=== PATIENT | female | born 1940 | race Caucasian/White ===

== ENCOUNTER 2017-02-01 10:51 | Day surgery (SDC) | payer MEDICARE, OTHER ==
[~2017-02-01 10:51] MED LIST: MIDAZOLAM 2 MG/2 ML VIAL IVP ONE; ONDANSETRON 4 MG/2 ML VIAL IVP ONE; fentaNYL 100 MCG/2 ML VIAL IVP ONE
[2017-02-01] MEDS ORDERED: LACTATED RINGERS 1,000 ML IV ONE (11:17)
[2017-02-01] MEDS ORDERED: MIDAZOLAM 2 MG/2 ML VIAL IVP ONE (12:24)
[2017-02-01] MEDS ORDERED: fentaNYL 250 MCG/5 ML VIAL IVP ONE (12:24)
== END 2017-02-01 10:52 | disposition home or self-care (01) ==
PROC: 0DJD8ZZ Inspection of Lower Intestinal Tract, Via Natural or Artificial Opening Endoscopic (ICD-10-PCS; principal; 2017-02-01 12:00)
DX: Z12.11 Encounter for screening for malignant neoplasm of colon (principal); K57.30 Diverticulosis of large intestine without perforation or abscess without bleeding; Z86.010 Personal history of colon polyps; I10 Essential (primary) hypertension; E78.00 Pure hypercholesterolemia, unspecified; Z79.82 Long term (current) use of aspirin; Z85.828 Personal history of other malignant neoplasm of skin; Z83.3 Family history of diabetes mellitus; Z82.49 Family history of ischemic heart disease and other diseases of the circulatory system; Z80.3 Family history of malignant neoplasm of breast; Z87.891 Personal history of nicotine dependence
CPT/HCPCS: G0105; J3010; J7120

== ENCOUNTER 2017-06-14 10:10 | Outpatient (CLI) | payer MEDICARE, OTHER ==
--- NOTE | 2017-06-15 15:09 | Mammography Report ---
DIGITAL SCREENING MAMMOGRAM: 06/14/2017 CLINICAL INDICATION: A 76-year-old with family history of breast cancer for screening. COMPARISON: 05/2016, 04/2015, 04/2014, 04/2013, 02/2012, 01/2011, 01/2010 TECHNIQUE: Routine CC and MLO projections were obtained of the breasts. FINDINGS: Parenchymal tissue within the breasts is predominantly fatty replaced. There are no domina nt masses, suspicious microcalcifications, or secondary signs of malignancy. In comparison to the pre vious studies, there are no significant changes. IMPRESSION: NO MAMMOGRAPHIC EVIDENCE OF MALIGNANCY. NO SIGNIFICANT INTERVAL CHANGES. RECOMMENDATION: Screening mammography is recommended annually. BIRADS category 1 - negative. STANDARD QUALIFYING STATEMENTS 1. This examination was reviewed with the aid of Computed-Aided Detection (CAD). 2. A negative or benign imaging report should not delay biopsy if clinically suspicious findings are present. Consider surgical consultation if warranted. More than 5% of cancers are not identified by i maging. 3. Dense breasts may obscure an underlying neoplasm. JOB #: [id number] EXT JOB #:[id number]
== END 2017-06-14 10:11 | disposition home or self-care (01) ==
LOC: DI.N 10:10
PROVIDERS: ATTEND Physician Assistant Medical
DX: Z12.31 Encounter for screening mammogram for malignant neoplasm of breast (principal)
CPT/HCPCS: 77067

== ENCOUNTER 2018-08-19 12:17 | Outpatient (CLI) | payer MEDICARE, OTHER ==
--- NOTE | 2018-08-20 13:49 | Mammography Report ---
Reason: SCREENING MAMMO Procedure Date: 08/19/2018 Accession Number: [id number] / [id number] Procedure: MGN - Screening Mammo Dig Bilat CPT Code: FULL RESULT: EXAM: Screening Mammo Dig Bilat DATE: 08/19/2018 12:39 PM CLINICAL HISTORY: Routine screening TECHNIQUE: Bilateral CC and MLO views were obtained. COMPARISON: 06/14/2017, 06/01/2016, 05/13/2015 and 05/12/2014 FINDINGS: There are scattered fibroglandular densities. There is no significant interval change. No suspicious masses, clustered microcalcifications, or regions of architectural distortion are identified. IMPRESSION: Negative examination RECOMMENDATION: Routine annual screening unless otherwise clinically indicated. BIRADS CATEGORY 1: Negative STANDARD QUALIFYING STATEMENTS: 1. This examination was reviewed with the aid of Computer-Aided Detection (CAD). 2. A negative or benign imaging report should not delay biopsy if clinically suspicious findings are present. Consider surgical consultation if warrented. More than 5% of cancers are not identified by imaging. 3. Dense breasts may obscure an underlying neoplasm.
== END 2018-08-19 12:18 | disposition home or self-care (01) ==
LOC: DI.N 12:17
DX: Z12.31 Encounter for screening mammogram for malignant neoplasm of breast (principal)
CPT/HCPCS: 77067

== ENCOUNTER 2019-08-19 09:47 | Outpatient (CLI) | payer MEDICARE, OTHER ==
--- NOTE | 2019-08-19 12:35 | Mammography Report ---
Reason: SCREENING MAMMO Procedure Date: 08/19/2019 Accession Number: [id number] / [id number] Procedure: MGN - Screening Mammo Dig Bilat CPT Code: FULL RESULT: EXAM: Screening Mammo Dig Bilat DATE: 08/19/2019 10:07 AM CLINICAL HISTORY: Routine screening TECHNIQUE: (B) - Bilateral CC and MLO views were obtained. COMPARISON: 08/19/2018, 06/14/2017, 06/01/2016, 05/13/2015, 05/12/2014, 05/16/2013 and 03/02/2012 PARENCHYMAL PATTERN: (A) - The breasts demonstrate scattered fibroglandular densities bilaterally. FINDINGS: No significant interval change. There are no suspicious masses, calcifications, or areas of distortion. IMPRESSION: Negative examination. BI-RADS category 1. RECOMMENDATION: (ANNUAL) - Recommend routine annual screening mammography. BI-RADS CATEGORY: (1) - Negative. STANDARD QUALIFYING STATEMENTS: 1. This examination was not reviewed with the aid of Computer-Aided Detection (CAD). 2. A negative or benign imaging report should not preclude biopsy if clinically suspicious findings are present. 3. Dense breasts may obscure an underlying neoplasm. 4. This examination was reviewed without the aid of 3D breast imaging (tomosynthesis).
== END 2019-08-19 09:48 | disposition home or self-care (01) ==
LOC: DI.N 09:47
DX: Z12.31 Encounter for screening mammogram for malignant neoplasm of breast (principal)
CPT/HCPCS: 77067

== ENCOUNTER 2019-11-05 08:00 | Outpatient (CLI) | payer MEDICARE, OTHER ==
[2019-11-05 12:44] LABS: ALBUMIN 4.2 g/dL (3.2-5.5); ALBUMIN/GLOBULIN RATIO 1.3 (1.0-2.2); BILIRUBIN,TOTAL 0.7 mg/dL (0.2-1.0); CALCIUM 10.6 mg/dL (8.5-10.3); CREATININE 0.8 mg/dL (0.4-1.0); TOTAL PROTEIN 7.5 g/dL (6.7-8.2)
[2019-11-05 12:45] LABS: BASOPHILS # (AUTO) 0.1 10^3/uL (0.0-0.1); BASOPHILS % (AUTO) 0.6 %; EOSINOPHILS # (AUTO) 0.1 10^3/uL (0.0-0.7); EOSINOPHILS % (AUTO) 0.5 %; HGB - HEMOGLOBIN 14.9 g/dL (12.0-16.0); LYMPHOCYTES # (AUTO) 2.5 10^3/uL (1.5-3.5); LYMPHOCYTES % (AUTO) 26.2 %; MEAN CORPUSCULAR HEMOGLOBIN 27.9 pg (27.0-31.0); MEAN CORPUSCULAR HGB CONC 32.5 g/dL (32.0-36.0); MEAN CORPUSCULAR VOLUME 85.6 fL (81.0-99.0); MEAN PLATELET VOLUME 9.8 fL (7.9-10.8); MONOCYTES # (AUTO) 0.8 10^3/uL (0.0-1.0); MONOCYTES % (AUTO) 8.6 %; NEUTROPHILS # (AUTO) 6.2 10^3/uL (1.5-6.6); NEUTROPHILS % (AUTO) 63.6 %; PLT - PLATELET COUNT 418 10^3/uL (130-450); RED BLOOD COUNT 5.35 10^6/uL (4.20-5.40); RED CELL DISTRIBUTION WIDTH 15.1 % (12.0-15.0); WHITE BLOOD COUNT 9.7 x10^3/uL (4.8-10.8)
[2019-11-05 13:53] LABS: HB2 TOTAL 14.9 g/dL; HEMOGLOBIN A1C 0.61 g/dL; HEMOGLOBIN A1C % 5.9 % (4.6-6.2)
== END 2019-11-05 23:59 | disposition home or self-care (01) ==
LOC: LAB.WCP 08:00
PROVIDERS: ATTEND Family Medicine
DX: E87.6 Hypokalemia (principal); R73.01 Impaired fasting glucose; I10 Essential (primary) hypertension
CPT/HCPCS: 36415; 80053; 83036; 85025

== ENCOUNTER 2021-07-06 08:00 | Outpatient (CLI) | payer MEDICARE, OTHER ==
[2021-07-06 12:08] LABS: BASOPHILS # (AUTO) 0.1 10^3/uL (0.0-0.1); BASOPHILS % (AUTO) 0.8 %; EOSINOPHILS # (AUTO) 0.2 10^3/uL (0.0-0.7); EOSINOPHILS % (AUTO) 1.7 %; HCT - HEMATOCRIT 47.2 % (37.0-47.0); LYMPHOCYTES # (AUTO) 3.3 10^3/uL (1.5-3.5); LYMPHOCYTES % (AUTO) 32.4 %; MEAN CORPUSCULAR HEMOGLOBIN 28.2 pg (27.0-31.0); MEAN CORPUSCULAR HGB CONC 31.8 g/dL (32.0-36.0); MEAN CORPUSCULAR VOLUME 88.7 fL (81.0-99.0); MEAN PLATELET VOLUME 9.9 fL (7.9-10.8); MONOCYTES # (AUTO) 0.9 10^3/uL (0.0-1.0); MONOCYTES % (AUTO) 8.8 %; NEUTROPHILS # (AUTO) 5.6 10^3/uL (1.5-6.6); NEUTROPHILS % (AUTO) 55.9 %; PLT - PLATELET COUNT 466 10^3/uL (130-450); RED BLOOD COUNT 5.32 10^6/uL (4.20-5.40); RED CELL DISTRIBUTION WIDTH 15.4 % (12.0-15.0); WHITE BLOOD COUNT 10.1 x10^3/uL (4.8-10.8)
[2021-07-06 12:35] LABS: ALBUMIN 4.2 g/dL (3.2-5.5); ALBUMIN/GLOBULIN RATIO 1.3 (1.0-2.2); ALKALINE PHOSPHATASE 37 IU/L (42-121); ALT ALANINE AMINOTRANSFERASE 18 IU/L (10-60); AST ASPARTATE AMINOTRANSFERASE 17 IU/L (10-42); BILIRUBIN,TOTAL 0.6 mg/dL (0.2-1.0); BUN - BLOOD UREA NITROGEN 28 mg/dL (6-20); CALCIUM 10.3 mg/dL (8.5-10.3); CARBON DIOXIDE - CO2 30 mmol/L (21-32); CHLORIDE 103 mmol/L (101-111); CHOL/HDL RATIO 3.2 (<4.4); CHOLESTEROL 189 mg/dL; CREATININE 0.9 mg/dL (0.4-1.0); GFR - MDRD 60 (>89); GLUCOSE 107 mg/dL (70-100); HDL CHOLESTEROL 60 mg/dL; LDL CHOLESTEROL,CALCULATED 101 mg/dL; LDL/HDL RATIO 1.7 (<4.4); POTASSIUM 3.9 mmol/L (3.5-5.0); SODIUM 145 mmol/L (135-145); TOTAL PROTEIN 7.5 g/dL (6.7-8.2); TRIGLYCERIDES 141 mg/dL; VLDL CHOLESTEROL 28 mg/dL
[2021-07-06 12:39] LABS: THYROID STIMULATING HORMONE 2.06 uIU/mL (0.34-5.60)
[2021-07-06 12:41] LABS: ESTIMATED AVERAGE GLUCOSE 120 mg/dL (70-100); HEMOGLOBIN A1c% 5.8 % (4.27-6.07)
== END 2021-07-06 23:59 | disposition home or self-care (01) ==
LOC: LAB.WCP 08:00
PROVIDERS: ATTEND Physician Assistant Medical
DX: E87.5 Hyperkalemia (principal); R80.9 Proteinuria, unspecified; R73.01 Impaired fasting glucose; E78.5 Hyperlipidemia, unspecified; I10 Essential (primary) hypertension
CPT/HCPCS: 36415; 80053; 80061; 83036; 83721; 84443; 85025

== ENCOUNTER 2021-07-11 14:38 | Outpatient (CLI) | payer MEDICARE, OTHER ==
--- NOTE | 2021-07-12 13:00 | Mammography Report ---
BILATERAL DIGITAL SCREENING MAMMOGRAM 3D/2D: 07/11/2021 CLINICAL: Family history of breast cancer. Routine screening. Comparison is made to exams dated: 08/19/2019 mammogram, 08/19/2018 mammogram, 06/14/2017 mammogram, 06/01/2016 mammogram, 05/13/2015 mammogram, and 05/12/2014 mammogram - [facility]. The re are scattered fibroglandular elements in both breasts. No significant masses, calcifications, or other findings are seen in either breast. There has been no significant interval change. IMPRESSION: NEGATIVE There is no mammographic evidence of malignancy. A 1 year screening mammogram is recommended. This exam was interpreted at Station ID: [id number]. NOTE: For mammograms, a report in lay terms will be sent to the patient. Approximately 15% of breast malignancies will not be visualized mammographically. In the management of a palpable breast mass, a negative mammogram must not discourage biopsy of a clinically suspicious lesion. Electronically Signed By: Papa Jarquin acr/penrad:07/11/2021 18:00:22 ACR BI-RADS Category 1: Negative 3341F PARENCHYMAL PATTERN: (A) - The breast(s) demonstrate(s) scattered fibroglandular densities. BI-RADS CATEGORY: (1) - 1 RECOMMENDATION: (ANNUAL) - Recommend routine annual screening mammography. [id number] 1 year screening LATERALITY: (B)
== END 2021-07-11 14:39 | disposition home or self-care (01) ==
LOC: DI.N 14:38
DX: Z12.31 Encounter for screening mammogram for malignant neoplasm of breast (principal); Z80.3 Family history of malignant neoplasm of breast

== ENCOUNTER 2022-07-05 07:38 | Outpatient (CLI) | payer MEDICARE, OTHER ==
[2022-07-05 12:47] LABS: BASOPHILS # (AUTO) 0.1 10^3/uL (0.0-0.1); BASOPHILS % (AUTO) 0.8 %; EOSINOPHILS # (AUTO) 0.2 10^3/uL (0.0-0.7); HCT - HEMATOCRIT 47.9 % (37.0-47.0); HGB - HEMOGLOBIN 15.6 g/dL (12.0-16.0); LYMPHOCYTES % (AUTO) 30.2 %; MEAN CORPUSCULAR HEMOGLOBIN 28.3 pg (27.0-31.0); MEAN CORPUSCULAR HGB CONC 32.6 g/dL (32.0-36.0); MEAN CORPUSCULAR VOLUME 86.9 fL (81.0-99.0); MEAN PLATELET VOLUME 9.5 fL (7.9-10.8); MONOCYTES # (AUTO) 0.9 10^3/uL (0.0-1.0); MONOCYTES % (AUTO) 9.1 %; NEUTROPHILS # (AUTO) 5.6 10^3/uL (1.5-6.6); NEUTROPHILS % (AUTO) 57.5 %; PLT - PLATELET COUNT 489 10^3/uL (130-450); RED BLOOD COUNT 5.51 10^6/uL (4.20-5.40); RED CELL DISTRIBUTION WIDTH 15.5 % (12.0-15.0); WHITE BLOOD COUNT 9.8 x10^3/uL (4.8-10.8)
[2022-07-05 13:21] LABS: ALBUMIN 4.4 g/dL (3.2-5.5); ALBUMIN/GLOBULIN RATIO 1.3 (1.0-2.2); ALKALINE PHOSPHATASE 40 IU/L (42-121); ALT ALANINE AMINOTRANSFERASE 18 IU/L (10-60); AST ASPARTATE AMINOTRANSFERASE 21 IU/L (10-42); BILIRUBIN,TOTAL 0.9 mg/dL (0.2-1.0); BUN - BLOOD UREA NITROGEN 23 mg/dL (6-20); CALCIUM 10.5 mg/dL (8.5-10.3); CARBON DIOXIDE - CO2 30 mmol/L (21-32); CHLORIDE 99 mmol/L (101-111); CHOL/HDL RATIO 2.9 (<4.4); CHOLESTEROL 228 mg/dL; CREATININE 0.8 mg/dL (0.4-1.0); GFR - MDRD 69 (>89); GLUCOSE 110 mg/dL (70-100); HDL CHOLESTEROL 78 mg/dL; LDL CHOLESTEROL,CALCULATED 100 mg/dL; LDL/HDL RATIO 1.3 (<4.4); SODIUM 140 mmol/L (135-145); TOTAL PROTEIN 7.7 g/dL (6.7-8.2); TRIGLYCERIDES 251 mg/dL; VLDL CHOLESTEROL 50 mg/dL
[2022-07-05 13:25] LABS: ESTIMATED AVERAGE GLUCOSE 123 mg/dL (70-100); HEMOGLOBIN A1c% 5.9 % (4.27-6.07)
== END 2022-07-05 07:39 | disposition home or self-care (01) ==
LOC: LAB.N 07:38
PROVIDERS: ATTEND Physician Assistant Medical
DX: I10 Essential (primary) hypertension (principal); E78.5 Hyperlipidemia, unspecified; R73.01 Impaired fasting glucose
CPT/HCPCS: 36415; 80053; 80061; 83036; 83721; 85025

== ENCOUNTER 2022-08-09 09:02 | Outpatient (CLI) | payer MEDICARE, OTHER ==
--- NOTE | 2022-08-10 09:49 | Mammography Report ---
BILATERAL DIGITAL SCREENING MAMMOGRAM 3D/2D: 08/09/2022 CLINICAL: Routine screening. Comparison is made to exams dated: 07/11/2021 mammogram, 08/19/2019 mammogram, 08/19/2018 mammogram, 06/14/2017 mammogram, 06/01/2016 mammogram, and 05/13/2015 mammogram - [facility]. There are scattered areas of fibroglandular density in both breasts (category b / 25%-50% glandular t issue). No significant masses, calcifications, or other findings are seen in either breast. There has been no significant interval change. IMPRESSION: NEGATIVE There is no mammographic evidence of malignancy. A 1 year screening mammogram is recommended. Based on the Tyrer Cuzick model (a risk assessment model) the patients lifetime risk is 0.8% and her 10 year risk is 0.0%. According to the ACR, ACS, and NCCN guidelines, an annual breast MRI exam miguel g with mammogram is recommended if the patients lifetime risk is 20% or greater. This exam was interpreted at Station ID: [id number]. NOTE: For mammograms, a report in lay terms will be sent to the patient. Approximately 15% of breast malignancies will not be visualized mammographically. In the management of a palpable breast mass, a negative mammogram must not discourage biopsy of a clinically suspicious lesion. Electronically Signed By: Mike rodriguez/felipa:08/10/2022 07:46:28 ACR BI-RADS Category 1: Negative 3341F PARENCHYMAL PATTERN: (A) - The breast(s) demonstrate(s) scattered fibroglandular densities. BI-RADS CATEGORY: (1) - 1 RECOMMENDATION: (ANNUAL) - Recommend routine annual screening mammography. [id number] 1 year screening LATERALITY: (B)
== END 2022-08-09 09:03 | disposition home or self-care (01) ==
LOC: DI.N 09:02
DX: Z12.31 Encounter for screening mammogram for malignant neoplasm of breast (principal)

== ENCOUNTER 2023-09-13 08:11 | Outpatient (CLI) | payer MEDICARE, OTHER ==
[2023-09-13 11:36] LABS: BASOPHILS # (AUTO) 0.1 10^3/uL (0.0-0.1); BASOPHILS % (AUTO) 0.5 %; EOSINOPHILS # (AUTO) 0.1 10^3/uL (0.0-0.7); HCT - HEMATOCRIT 44.9 % (37.0-47.0); HGB - HEMOGLOBIN 14.7 g/dL (12.0-16.0); LYMPHOCYTES # (AUTO) 2.5 10^3/uL (1.5-3.5); LYMPHOCYTES % (AUTO) 26.5 %; MEAN CORPUSCULAR HEMOGLOBIN 29.1 pg (27.0-31.0); MEAN CORPUSCULAR HGB CONC 32.7 g/dL (32.0-36.0); MEAN CORPUSCULAR VOLUME 88.7 fL (81.0-99.0); MEAN PLATELET VOLUME 9.7 fL (7.9-10.8); MONOCYTES # (AUTO) 1.2 10^3/uL (0.0-1.0); MONOCYTES % (AUTO) 12.2 %; NEUTROPHILS # (AUTO) 5.6 10^3/uL (1.5-6.6); NEUTROPHILS % (AUTO) 59.6 %; PLT - PLATELET COUNT 507 10^3/uL (130-450); RED BLOOD COUNT 5.06 10^6/uL (4.20-5.40); RED CELL DISTRIBUTION WIDTH 15.5 % (12.0-15.0); WHITE BLOOD COUNT 9.4 x10^3/uL (4.8-10.8)
[2023-09-13 12:11] LABS: ALBUMIN 4.3 g/dL (3.2-5.5); ALBUMIN/GLOBULIN RATIO 1.7 (1.0-2.2); ALKALINE PHOSPHATASE 31 IU/L (42-121); ALT ALANINE AMINOTRANSFERASE 16 IU/L (10-60); AST ASPARTATE AMINOTRANSFERASE 19 IU/L (10-42); BILIRUBIN,TOTAL 0.6 mg/dL (0.2-1.0); BUN - BLOOD UREA NITROGEN 37 mg/dL (6-20); CALCIUM 9.9 mg/dL (8.5-10.3); CARBON DIOXIDE - CO2 26 mmol/L (21-32); CHLORIDE 102 mmol/L (101-111); CHOL/HDL RATIO 2.9 (<4.4); CHOLESTEROL 178 mg/dL; CREATININE 0.9 mg/dL (0.6-1.3); GFR - MDRD 60 (>89); GLUCOSE 99 mg/dL (74-104); HDL CHOLESTEROL 62 mg/dL; LDL CHOLESTEROL,CALCULATED 87 mg/dL; LDL/HDL RATIO 1.4 (<4.4); POTASSIUM 3.5 mmol/L (3.5-4.5); SODIUM 138 mmol/L (135-145); TOTAL PROTEIN 6.8 g/dL (6.4-8.9); TRIGLYCERIDES 144 mg/dL (48-352); VLDL CHOLESTEROL 29 mg/dL
[2023-09-13 12:29] LABS: ESTIMATED AVERAGE GLUCOSE 111 mg/dL (70-100); HEMOGLOBIN A1c% 5.5 % (4.27-6.07)
== END 2023-09-13 08:12 | disposition home or self-care (01) ==
LOC: LAB.N 08:11
PROVIDERS: ATTEND Physician Assistant Medical
DX: I10 Essential (primary) hypertension (principal); E78.5 Hyperlipidemia, unspecified; Z79.899 Other long term (current) drug therapy; R73.01 Impaired fasting glucose
CPT/HCPCS: 36415; 80053; 80061; 83036; 83721; 85025

== ENCOUNTER 2024-04-15 09:10 | Outpatient (CLI) | payer MEDICARE, OTHER ==
--- NOTE | 2024-04-15 15:13 | XRAY Report ---
PROCEDURE: Knee 3V RT INDICATIONS: KNEE PAIN, RIGHT TECHNIQUE: 3 views of the knee(s) were acquired. COMPARISON: None. FINDINGS: Bones: No fractures or dislocations. No suspicious bony lesions. Moderate tricompartmental arthri tic change most severe medially. Particular osteophytes are present. No erosions. Mild lateral patell ar subluxation. Soft tissues: No knee joint effusion. No suspicious soft tissue calcifications or masses. IMPRESSION: Moderate arthritic change most severe medially. Reviewed by: Radha Killian MD on 04/15/2024 3:11 PM PDT Approved by: Radha Killian MD on 04/15/2024 3:11 PM PDT Station ID: [id number]
== END 2024-04-15 09:11 | disposition home or self-care (01) ==
LOC: DI.N 09:10
PROVIDERS: ATTEND Physician Assistant Medical
DX: M17.11 Unilateral primary osteoarthritis, right knee (principal)

== ENCOUNTER 2024-05-20 10:23 | Outpatient (CLI) | payer MEDICARE, OTHER ==
--- NOTE | 2024-05-22 09:14 | Mammography Report ---
BILATERAL DIGITAL SCREENING MAMMOGRAM 3D/2D: 05/20/2024 CLINICAL: Routine screening. Family history of breast cancer. Comparison is made to exams dated: 08/09/2022 mammogram, 07/11/2021 mammogram, and 08/19/2019 mammogr am - [facility]. There are scattered areas of fibroglandular density in both breasts (category b / 25%-50% glandular t issue). No significant masses, calcifications, or other findings are seen in either breast. There has been no significant interval change. IMPRESSION: NEGATIVE There is no mammographic evidence of malignancy. A 1 year screening mammogram is recommended. This exam was interpreted at Station ID: [id number]. NOTE: For mammograms, a report in lay terms will be sent to the patient. Approximately 15% of breast malignancies will not be visualized mammographically. In the management of a palpable breast mass, a negative mammogram must not discourage biopsy of a clinically suspicious lesion. Electronically Signed By: German king/felipa:05/20/2024 11:37:30 letter sent: No_Letter ACR BI-RADS Category 1: Negative 3341F PARENCHYMAL PATTERN: (A) - The breast(s) demonstrate(s) scattered fibroglandular densities. BI-RADS CATEGORY: (1) - 1 RECOMMENDATION: (ANNUAL) - Recommend routine annual screening mammography. [id number] 1 year screening LATERALITY: (B)
== END 2024-05-20 10:24 | disposition home or self-care (01) ==
LOC: DI.N 10:23
DX: Z12.31 Encounter for screening mammogram for malignant neoplasm of breast (principal); Z80.3 Family history of malignant neoplasm of breast; R92.323 Mammographic fibroglandular density, bilateral breasts

== ENCOUNTER 2024-12-06 12:55 | Observation (INO) ==
[2024-12-06 13:31] LABS: BASOPHILS # (AUTO) 0.1 10^3/uL (0.0-0.1); BASOPHILS % (AUTO) 0.6 %; EOSINOPHILS # (AUTO) 0.1 10^3/uL (0.0-0.7); EOSINOPHILS % (AUTO) 0.5 %; HCT - HEMATOCRIT 45.2 % (37.0-47.0); HGB - HEMOGLOBIN 14.6 g/dL (12.0-16.0); LYMPHOCYTES # (AUTO) 2.8 10^3/uL (1.5-3.5); LYMPHOCYTES % (AUTO) 22.5 %; MEAN CORPUSCULAR HEMOGLOBIN 29.1 pg (27.0-31.0); MEAN CORPUSCULAR HGB CONC 32.3 g/dL (32.0-36.0); MEAN CORPUSCULAR VOLUME 90.2 fL (81.0-99.0); MEAN PLATELET VOLUME 9.4 fL (7.9-10.8); MONOCYTES # (AUTO) 1.3 10^3/uL (0.0-1.0); NEUTROPHILS # (AUTO) 8.3 10^3/uL (1.5-6.6); NEUTROPHILS % (AUTO) 65.8 %; PLT - PLATELET COUNT 654 10^3/uL (130-450); RED BLOOD COUNT 5.01 10^6/uL (4.20-5.40); RED CELL DISTRIBUTION WIDTH 15.3 % (12.0-15.0); WHITE BLOOD COUNT 12.6 x10^3/uL (4.8-10.8)
[2024-12-06 13:44] LABS: ALBUMIN 4.2 g/dL (3.2-5.5); ALBUMIN/GLOBULIN RATIO 1.3 (1.0-2.2); BILIRUBIN,TOTAL 0.4 mg/dL (0.2-1.0); CALCIUM 11.1 mg/dL (8.5-10.3); CREATININE 1.1 mg/dL (0.6-1.3); POTASSIUM 3.8 mmol/L (3.5-4.5); TOTAL PROTEIN 7.4 g/dL (6.4-8.9)
[2024-12-06 13:50] LABS: TROPONIN I HIGH SENSITIVITY 6.4 ng/L (2.3-14.8)
[2024-12-06] MEDS: LIDOCAINE 2%-EPI 1:100000 20 ML MDV SUBQ STA (14:40)
--- NOTE | 2024-12-06 14:50 | CT Report ---
PROCEDURE: CT Head WO INDICATIONS: fall head injury TECHNIQUE: Noncontrast 4.5 mm thick angled axial sections acquired from the foramen magnum to the vertex. For r adiation dose reduction, the following was used: automated exposure control, adjustment of mA and/or kV according to patient size. COMPARISON: None. FINDINGS: Image quality: Excellent. CSF spaces: Basal cisterns are patent. No extra-axial fluid collections. Ventricles are normal in size and shape. Brain: No midline shift. No intracranial masses or hemorrhage. Downey-white matter interface is norm al. Skull and face: Calvarium and visualized facial bones are intact, without suspicious lesions. Subcu taneous hematoma over the right parieto-occipital region without underlying fracture. Sinuses: Visualized sinuses and mastoids are clear. IMPRESSION: No intracranial hemorrhage. Subgaleal hematoma over the right parietal occipital region. Reviewed by: Edin Ayers MD on 12/06/2024 1:49 PM [place] Approved by: Edin Ayers MD on 12/06/2024 1:49 PM [facility] Station ID: [id number]
--- NOTE | 2024-12-06 14:52 | CT Report ---
PROCEDURE: CT Cervical Spine WO INDICATIONS: neck pain after fall TECHNIQUE: Noncontrast 3 mm thick sections acquired from the skull base to the T4 level. Sagittal and coronal r eformats were then constructed. For radiation dose reduction, the following was used: automated exp osure control, adjustment of mA and/or kV according to patient size. COMPARISON: None. FINDINGS: Image quality: Excellent. Bones: No fractures or dislocations. Visualized superior ribs are intact. Soft tissues: Prevertebral soft tissues are normal in thickness. No paravertebral hematomas. No ap ical pneumothoraces. Large bilateral thyroid nodules. IMPRESSION: No acute, displaced fracture or traumatic subluxation. Large bilateral thyroid nodules. Consider nonemergent ultrasound if not previously accomplished. Reviewed by: Edin Ayers MD on 12/06/2024 1:50 PM [facility] Approved by: Edin Ayers MD on 12/06/2024 1:50 PM [facility] Station ID: [id number]
--- NOTE | 2024-12-06 15:49 | ED Physician Documentation ---
History of Present Illness Stated complaint Stated Complaint: GLF/SYNCOPE Chief complaint Chief Complaint: Neuro History obtained from History obtained from: Patient History of Present Illness Timing: Prior to arrival Additonal information Additional information: Patient is an 84-year-old female presenting to the emergency department with past medical history of hypertension presents to the ER after syncopal episode. Patient was brought in by EMS after a syncopal episode at [employer]. Unsure how long she was out for patient denies any presyncopal symptoms prior to this. Patient is not on any sort of blood thinners. She was started on IV per EMS but had no fluids started as she was not hypotensive on their arrival. No nausea vomiting dizziness lightheadedness chest pain or shortness of breath associated with her symptoms. No significant past medical history of coronary artery disease. Meds/Allgy Home Medications Ambulatory Orders Medication Instructions Recorded Confirmed amlodipine 10 mg-atorvastatin 10 1 mg PO DAILY 01/31/17 01/31/17 mg tablet indapamide 2.5 mg tablet 2.5 mg PO DAILY 01/31/17 01/31/17 potassium chloride 10 mEq 10 meq PO DAILY 01/31/17 01/31/17 capsule,extended release aspirin 81 mg tablet,delayed 81 mg PO DAILY 02/01/17 02/01/17 release Allergies Allergies Allergy/AdvReac Type Severity Reaction Status Date / Time lisinopril Allergy Intermediate Rash Verified 12/06/24 13:01 [facility] Medical History Medical History (Updated 12/06/24 @ 22:32 by Tessa Ramos PA-C) Diverticulosis History of smoking 38 pack yrs, quite 1996 Normal colonoscopy 01/27/2006. 3 tubular adenomas 08/18/2011, none 02/01/2017 UTI (urinary tract infection) (03/10/09) BCC (basal cell carcinoma of skin) Proteinuria (03/10/09) Memory impairment (11/13/13) Knee pain, right (02/28/24) Impaired fasting glucose (11/05/19) Hypokalemia (11/13/13) Hyperlipidemia (10/29/1959) Hyperglycemia (10/29/1959) Hypercalcemia (11/13/13) Intact PTH was nml at 36 pg/mL in 05/2020 Social History Social History Smoking Status: Former smoker Second hand tobacco smoke exposure: No Do you dip or chew tobacco?: No Do you vape?: No Patient requests smoking cessation consult: No Initiate information on smoking cessation: No Smoking Status Details: quit 40 years ago Relationship: Level: Independent Do you feel safe in your home environment?: Yes Suffered physical, verbal, emotional, or financial abuse?: No ETOH Use: Exam Constitutional normal general appearance HENMT Laceration noted to posterior head approximately 3 cm in size active bleeding noted with palpable hematoma. TMs clear bilaterally. Oropharynx clear otherwise. Eyes PERRL and EOMs intact bilaterally Neck/C-Spine visual inspection normal Lymph no lymphadenopathy noted Chest inspection of chest normal Respiratory breath sounds equal bilaterally, normal respiratory effort and clear to auscultation bilaterally Cardiovascular normal heart rate noted, regular rhythm noted and no gallop Back/Pelvis spine normal to inspection Extremities normal to inspection Moving all extremities without difficuulty Skin skin color normal Results Vitals Vitals: Vital Signs - 24 hr 12/06/24 13:01 12/06/24 14:39 12/06/24 15:00 Temperature 36.6 C 36.8 C Temperature Source Tympanic Tympanic Pulse Rate 66 70 100 Respiratory Rate 16 16 24 Blood Pressure 180/88 H 170/94 H 170/90 H O2 Saturation 98 98 96 O2 Source Room air Room air Room air Pain Intensity 2 0 2 Oxygen O2 Source Room air Labs Labs: Laboratory Tests 12/06/24 12/06/24 13:06 13:24 WBC 12.6 H RBC 5.01 Hgb 14.6 Hct 45.2 MCV 90.2 MCH 29.1 MCHC 32.3 RDW 15.3 H Plt Count 654 H MPV 9.4 Neut # (Auto) 8.3 H Lymph # (Auto) 2.8 [place] # (Auto) 1.3 H Eos # (Auto) 0.1 Baso # (Auto) 0.1 Absolute Nucleated RBC 0.00 Nucleated RBC % 0.0 Sodium 139 Potassium 3.8 Chloride 102 Carbon Dioxide 29 Anion Gap 8.0 BUN 33 H Creatinine 1.1 Estimated GFR (MDRD) 47 L Glucose 130 H POC Whole Bld Glucose 128 Calcium 11.1 H Total Bilirubin 0.4 AST 13 ALT 11 Alkaline Phosphatase 36 L Troponin I High Sens 6.4 Total Protein 7.4 Albumin 4.2 Globulin 3.2 Albumin/Globulin Ratio 1.3 Lipase 33 PD Medical Decision Making ED course Complexity details: reviewed old records ED course: Patient is a 84-year-old female presents to the emergency department after syncopal episode. Patient was at [employer] grocery store doing her normal activities of daily living while she is standing in line she was talking to her friend and had dropped syncopal episode lasting multiple seconds. Patient does seem to recall the events well she did hit her head and lose consciousness she is not on blood thinners. No nausea or vomiting after episode. CT head: No intracranial hemorrhage Subgaleal hematoma over the right parietal occipital region. CT cervical spine: No acute, displaced fracture or traumatic subluxation. Large bilateral thyroid nodules. Consider nonemergent ultrasound if not previously accomplished. Leukocytosis of 12.6 here in the ED no signs of anemia, thrombocytosis of 654. Blood sugar stable here in the emergency department.Troponin within normal range. EKG does show PVCs no signs of heart block bradycardia or abnormal findings. Laceration repaired with 5 amalia here in the emergency department. See procedure note above patient tolerated well. Discussed case with hospitalist given concerning findings with convincing story and sudden drop syncope I feel patient should stay overnight for telemetry and further monitoring. Patient is in agreement with this plan and hospitalist Dr. Arias accepts patient to observation status. Discharge Plan Discharge Patient Disposition: [facility] DC/Xfer Condition: Good Clinical Impression: Syncope, Subgaleal hemorrhage Interventions: ED Admission Assessment Last Done: 12/06/24 16:52
[2024-12-06] MEDS: TETANUS/DIPHTHERIA/PERTUSSIS 0.5 ML SYRINGE IM ONE (16:32)
--- NOTE | 2024-12-06 16:54 | HISTORY & PHYSICAL EXAMINATION ---
Chief Complaint Chief Complaint Chief Complaint: syncopal fall. History of Present Illness Admitted From Admitted From:: Home History Obtained From Records Reviewed: Francy chart History obtained from: Pt History of Present Illness HPI Comment/Other: 84-year-old female who is independent in the community was standing in the line at the grocery store and suddenly passed out. She fell and hit her head. Workup in the ED has included a laceration repair, a CT of the head, which was negative as well as a CT of the C-spine which was negative for trauma she does however have large bilateral thyroid nodules. When she got up this morning she was feeling fine. She has done all of her normal things today she took her medications this morning. In the morning she takes her indapamide and her potassium. She has missed her amlodipine/atorvastatin today as she normally takes this in the middle of the day. She denies any strange occurrences at home like waking up on the kitchen floor or any known episodes of syncope or presyncope at home. She does live alone and she has neighbors that check in on her daily. Patient strongly endorses DNR/DNI. She states that her late daughter significant other would be her medical decision-maker. She will get me that contact information. His name is Carlos. Independent of my asking she requests to fill out a POLST while she is here in the hospital. Her primary care provider is Tiffany ford at [facility]. Meds/Allgy Home Medications Ambulatory Orders Medication Instructions Recorded Confirmed amlodipine 10 mg-atorvastatin 10 1 mg PO DAILY 01/31/17 01/31/17 mg tablet indapamide 2.5 mg tablet 2.5 mg PO DAILY 01/31/17 01/31/17 potassium chloride 10 mEq 10 meq PO DAILY 01/31/17 01/31/17 capsule,extended release aspirin 81 mg tablet,delayed 81 mg PO DAILY 02/01/17 02/01/17 release Allergies Allergies Allergy/AdvReac Type Severity Reaction Status Date / Time lisinopril Allergy Intermediate Rash Verified 12/06/24 13:01 [facility] Medical History Medical History (Updated 12/06/24 @ 16:11 by Juana Millan MD) Diverticulosis History of smoking 38 pack yrs, quite 1996 Normal colonoscopy 01/27/2006. 3 tubular adenomas 08/18/2011, none 02/01/2017 UTI (urinary tract infection) (03/10/09) BCC (basal cell carcinoma of skin) Proteinuria (03/10/09) Memory impairment (11/13/13) Knee pain, right (02/28/24) Impaired fasting glucose (11/05/19) Hypokalemia (11/13/13) Hyperlipidemia (10/29/1959) Hyperglycemia (10/29/1959) Hypercalcemia (11/13/13) Intact PTH was nml at 36 pg/mL in 05/2020 Social History Social History Smoking Status: Former smoker Second hand tobacco smoke exposure: No Do you dip or chew tobacco?: No Do you vape?: No Patient requests smoking cessation consult: No Initiate information on smoking cessation: No Smoking Status Details: quit 40 years ago Relationship: Level: Independent Do you feel safe in your home environment?: Yes Suffered physical, verbal, emotional, or financial abuse?: No ETOH Use: POLST Patient has POLST: No POLST Status: DNR Review of Systems Status of ROS: 10 or more systems reviewed and unremarkable except as noted in history and below Constitutional Denies: Fatigue, Malaise or Weakness Eyes Denies: Vision loss Ears, nose, mouth, and throat Denies: Tinnitus, Change in hearing, Vertigo, Difficulty swallowing or Hoarseness Cardiovascular Reports: Syncope (none prior); Denies: Irregular heart rate, palpitations, edema, swelling of feet/ankles or shortness of breath with exertion Respiratory Denies: Shortness of breath or Cough Gastrointestinal Denies: Abdominal pain, Abdominal distention, Nausea, Vomiting, Poor appetite or Difficulty swallowing Genitourinary Denies: Painful urination Musculoskeletal Denies: Back pain Integumentary/Breast Denies: Rash, Itching or Dryness Neurological Denies: Vertigo Psychiatric Denies: Depression or Anxiety Endocrine Denies: Fatigue Hematologic/Lymphatic Denies: Anemia Prior Level of Functionality: Drives, does all of her own cooking and cleaning. She even does most but not all of her yard work on her [place] acre property. lost her daughter and her about 2 years ago, was for 61 years, has no living children. Exam Constitutional normal general appearance, no apparent distress and average body habitus HENMT 5 amalia in right parieto-occipital region, without active bleeding Eyes PERRL, EOMs intact bilaterally, conjunctivae normal and visual acuity normal Neck/C-Spine visual inspection normal, trachea midline and no carotid bruits Lymph no lymphadenopathy noted Chest inspection of chest normal Respiratory breath sounds equal bilaterally and normal respiratory effort Cardiovascular normal heart rate noted and regular rhythm noted Gastrointestinal abdomen normal to inspection, abdomen soft to palpation and nondistended Back/Pelvis spine normal to inspection, no thoracic spine tenderness and no lumbar spine tenderness Extremities normal to inspection Neurology power saw mechanic II-XII intact, no movement abnormality noted, no focal motor deficit noted, no sensory deficits noted, gait normal, speech normal, coordination normal, no fasciculations noted and GCS 15 Psychiatry mental status grossly normal, oriented x3, thought process normal, cooperative, affect normal, psychomotor activity normal and memory normal (mildly forgetful regarding her meds. ) Skin skin color normal and no rash Conclusion/Plan Problem List (1) Syncope: Plan: Syncopal episode with little to no prodrome. She has not had any chest pain she has not had any palpitation she has not had any similar episodes at home. She has been feeling well she has not had any coughs colds fevers. She is well- hydrated and was having a normal day until this happened. Orthostatics in the emergency department show a supine blood pressure of 137/69, sitting 148/79, standing down to 120/73 without symptoms. Heart rate supine 98, sitting, 93, standing 113. Discussed with Tessa Ramos PA-C in the emergency department and decision was made to admit this patient to attempt to further discern the cause of her syncopal episode She will be placed in observation status for workup of her syncope. She will be placed on telemetry overnight. We will observe vital signs. She will need echocardiogram, however I do not have echocardiography in house for 2 days. Will defer this to the outpatient environment. She also may require Holter monitor if nothing is seen on telemetry overnight. (2) Subgaleal hemorrhage: Plan: Subgaleal hematoma with overlying scalp laceration. Bleeding is well- controlled. Patient does not have any focal neurologic deficits. There is no bleeding inside the cranial vault. This is per CT scan done in the emergency department. (3) Hypertension: Plan: Home medications are indapamide 2.5 mg daily as well as amlodipine/atorvastatin, dose unknown. Until medications are reconciled I will hold her blood pressure medications. Her blood pressure was 1 70-1 80 upon initial presentation but has since come down. (4) Hypercalcemia: Plan: She relates to me a history of possible hypothyroidism many many years ago. She states she took medications for about 6 years and then stopped the medication because the doctor told her her labs were fine. She does have hypercalcemia on her blood work. Looking back historically she has had some mild intermittent hypercalcemia with levels of 10.5 and 10.6. She is 11.1 today corrected she is 10.9. With a.m. labs I will send TSH, vitamin D, and intact parathyroid hormone. Plan I have spent 78 minutes in the care of this patient today. This includes time [id number], review and ordering of diagnostic imaging and laboratory studies and consultation with other providers.. Monitoring the patient's signs symptoms, evaluation of medication effectiveness and patient's response to treatment. Lab Results 12/06/24 13:24 12/06/24 13:24 EKG Results EKG Comparison: Old EKG unavailable Core Measures Anticipated LOS I expect patient to be DC'd or transferred within 96 hours.: Yes Issues Hospital Issues and Management Plan: syncope without clear cause. Will place on telemetry overnight. Will need to defer Echo to outpatient setting. patient requests POLST. I have spent 76 minutes in the care of this patient today. This includes time [id number], review and ordering of diagnostic imaging and laboratory studies and consultation with other providers.. Monitoring the patient's signs symptoms, evaluation of medication effectiveness and patient's response to treatment. DVT/VTE - Prophylaxis VTE/DVT Device ordered at admit?: Yes VTE/DVT Prophylaxis med ordered at admit?: Yes
[2024-12-06] MEDS ORDERED: ACETAMINOPHEN 325 MG TABLET PO PRN (16:56)
[2024-12-06] MEDS ORDERED: oxyCODONE 5 MG TABLET PO PRN (16:56)
[2024-12-06] MEDS ORDERED: ONDANSETRON 4 MG/2 ML VIAL IVP PRN (16:56)
[2024-12-06] MEDS ORDERED: ONDANSETRON ODT 4 MG TABLET TL PRN (16:56)
[2024-12-06] MEDS ORDERED: SODIUM CHLORIDE FLUSH 0.9% 10 ML SYRINGE IVP PRN (16:56)
--- NOTE | 2024-12-06 18:18 | ADVANCE CARE PLANNING NOTE ---
Advance Care Planning Planning Encounter Date: 12/06/24 Purpose: determine care goals, patient request Parties in Attendance: Komal Restrepo PA-C Decisional Capacity of the Patient: alert, and oriented, with insight into her condition and circomstances. Discussion begun in the ED per patient request, and continued after admission. Diagnosis for Encounter (1) Syncope: (2) Subgaleal hemorrhage: (3) Hypertension: (4) Hypercalcemia: Encounter Subjective/Patient's Story: 84 yo female who is independent in all of her activities. She has some help with yardwork on her [place].[address] acre property, but otherwise meets all her own needs. Has close neighbors that check in with her daily. She lost her of 61 years and her daughter about 2 years ago. She remains tearful about this. She has no living family. Her daughter's significant other, Carlos, would be her surrogate medical decision maker if and when the time comes. She figures she has 1-2 years of life left. she will be surprised if she lives to see 88. She wants to peacefully in her sleep, but she knows when it is her time to go, she will go. Objective/Medical Story: She is well. has hypertension and hyperlipidemia. She has some chronically elevated calcium, Goals of Care: Primary goal is using medical interventions to maintain current quality of life. She would consent to interventions like a pacemaker, because this would achieve that goal, but does not want any heroic life sustaining measures. Plan: DNR/DNR, selective treatment POLST completed. Code Status: Do Not Attempt Resuscitation Time spent on advance care plannin
[2024-12-06] MEDS: SODIUM CHLORIDE FLUSH 0.9% 10 ML SYRINGE IVP SCH (19:09)
[2024-12-06] MEDS: SODIUM CHLORIDE 0.9% 1,000 ML IV SCH (19:09)
[2024-12-06] MEDS: HEPARIN 5,000 UNIT/ML VIAL SUBQ SCH (21:02)
[2024-12-07 05:05] LABS: BASOPHILS % (AUTO) 0.4 %; EOSINOPHILS # (AUTO) 0.1 10^3/uL (0.0-0.7); EOSINOPHILS % (AUTO) 0.8 %; HCT - HEMATOCRIT 41.7 % (37.0-47.0); HGB - HEMOGLOBIN 13.4 g/dL (12.0-16.0); LYMPHOCYTES # (AUTO) 2.4 10^3/uL (1.5-3.5); MEAN CORPUSCULAR HEMOGLOBIN 28.9 pg (27.0-31.0); MEAN CORPUSCULAR HGB CONC 32.1 g/dL (32.0-36.0); MEAN CORPUSCULAR VOLUME 90.1 fL (81.0-99.0); MEAN PLATELET VOLUME 9.6 fL (7.9-10.8); MONOCYTES # (AUTO) 1.3 10^3/uL (0.0-1.0); MONOCYTES % (AUTO) 12.6 %; NEUTROPHILS # (AUTO) 6.2 10^3/uL (1.5-6.6); NEUTROPHILS % (AUTO) 61.7 %; PLT - PLATELET COUNT 590 10^3/uL (130-450); RED BLOOD COUNT 4.63 10^6/uL (4.20-5.40); RED CELL DISTRIBUTION WIDTH 15.2 % (12.0-15.0)
[2024-12-07 05:29] LABS: CALCIUM 10.1 mg/dL (8.5-10.3)
[2024-12-07 08:08] LABS: THYROID STIMULATING HORMONE 1.8 uIU/mL (0.34-5.60)
[2024-12-07 12:21] VITALS: BP 115/60; TEMP 98.2; O2SAT 96
--- NOTE | 2024-12-07 12:23 | Discharge Summary ---
"Discharge Summary Admit Date: 12/06/24 Discharge Date: 12/07/24 Discharging Provider: Komal Owen PA-C Primary Care Provider: Tiffany Villalobos PA-C Code Status: Do Not Attempt Resuscitation DIAGNOSES Discharge Diagnoses with Status of Each Condition: Syncopal episode, telemetry monitoring overnight negative Subgaleal hemorrhage with scalp laceration, will need staple removal in 10 days. Hypertension, continue all medications Hypercalcemia. looks to be longstanding. Intact PTH neg, have added Vit D levels, as well as protein electrophoresis. Please check these results at PCP followup. Incidentally found bilateral thyroid nodules, recommend nonemergent ultrasound HPI History of Present Illness: 84-year-old female who is independent in the community was standing in the line at the grocery store and suddenly passed out. She fell and hit her head. Workup in the ED has included a laceration repair, a CT of the head, which was negative as well as a CT of the C-spine which was negative for trauma she does however have large bilateral thyroid nodules. When she got up this morning she was feeling fine. She has done all of her normal things today she took her medications this morning. In the morning she takes her indapamide and her potassium. She has missed her amlodipine/atorvastatin today as she normally takes this in the middle of the day. She denies any strange occurrences at home like waking up on the kitchen floor or any known episodes of syncope or presyncope at home. She does live alone and she has neighbors that check in on her daily. Patient strongly endorses DNR/DNI. She states that her late daughter significant other would be her medical decision-maker. She will get me that contact information. His name is Carlos. Independent of my asking she requests to fill out a POLST while she is here in the hospital. Her primary care provider is Tiffany Villalobos here at [facility]. CONSULTS | PROCEDURES Procedures: CT head: No intracranial hemorrhage. Subgaleal hematoma over the right parietal occipital region. Cervical spine CT: No acute displaced fracture or traumatic subluxation. Large bilateral thyroid nodules. Consider nonemergent ultrasound if not previously accomplished HOSPITAL COURSE Hospital Course: (1) Syncope: Syncopal episode with little to no prodrome. She has not had any chest pain she has not had any palpitation she has not had any similar episodes at home. She has been feeling well she has not had any coughs colds fevers. She is well- hydrated and was having a normal day until this happened. Orthostatics in the emergency department show a supine blood pressure of 137/69, sitting 148/79, standing down to 120/73 without symptoms. Heart rate supine 98, sitting, 93, standing 113. Telemetry ovenight not revealing. She also may require Holter monitor if nothing is seen on telemetry overnight. I do not have echocardiography available at this time, but would definitely recommend that this be done. no murmur on exam. (2) Subgaleal hemorrhage: Subgaleal hematoma with overlying scalp laceration. Bleeding is well- controlled. Patient does not have any focal neurologic deficits. There is no bleeding inside the cranial vault. This is per CT scan done in the emergency department. Gilman out 10 days. (3) Hypertension: Home medications are indapamide 2.5 mg daily as well as amlodipine/atorvastatin, dose unknown. home meds were held pending reconciliation. Her blood pressure was 170-1 80 upon initial presentation but has since come down. (4) Hypercalcemia: She relates to me a history of possible hypothyroidism many many years ago. She states she took medications for about 6 years and then stopped the medication because the doctor told her her labs were fine. She does have nodules incidentally seen on CT neck, needs thyroid ultrasound. She does have hypercalcemia on her blood work. Looking back historically she has had some mild intermittent hypercalcemia with levels of 10.5 and 10.6. Takes a calcium supplement at home, but does not take excessive amounts of TUMS or similar. She is 11.1 today corrected she is 10.9. With a.m. labs I will send TSH, vitamin D, and intact parathyroid hormone, as well as serum protein electrophoresis. These lab results should be reviewed in the outpatient environment. ALLERGIES Allergies Allergy/AdvReac Type Severity Reaction Status Date / Time lisinopril Allergy Intermediate Rash Verified 12/06/24 13:01 MEDICATIONS Ambulatory Orders Medication Instructions Recorded Confirmed indapamide 2.5 mg tablet 2.5 mg PO DAILY 01/31/17 12/07/24 potassium chloride 10 mEq 10 meq PO DAILY 01/31/17 12/07/24 capsule,extended release PHYSICAL EXAM AT DISCHARGE General Appearance: positive No acute distress and Alert Eyes Bilateral: positive Normal inspection and Conjunctivae nml ENT: positive ENT inspection nml Neck: positive Nml inspection Respiratory: positive No respiratory distress and Breath sounds nml Cardiovascular: positive Regular rate & rhythm Peripheral Pulses: positive 2+ Abdomen: positive Non-tender and No distention Skin: positive Color nml and No rash Extremities: positive No pedal edema Neurologic/Psychiatric: positive Oriented x3 LABS 12/07/24 04:55 12/07/24 04:55 FOLLOW UP Follow Up: PCP, TEMITOPE Villalobos. 7-10 d TIME SPENT Time Spent in Discharge (Minutes): 40 Discharge Plan Discharge Patient Disposition: Home, Self Care Condition: Good Prescriptions: Continued potassium chloride 10 MEQ capsule, extended release 10 meq PO DAILY indapamide 2.5 MG tablet 2.5 mg PO DAILY Interventions: Belongings Inventory Last Done: 12/06/24 17:25 Discharge Last Done: 12/07/24 13:50 Discharge Checklist - Nursing Last Done: 12/07/24 13:50 Health Concerns: you came in after passing out in the grocery store. I do not know why this happened. We have monitored your heart overnight here at the hospital, and have not seen any pauses or arrhythmias in your heart rate. none of your medicines should have caused you to pass out. I would recommend that you continue all of your medicines at home. your blood pressure here has been normal and your heart rate has been normal. your blood calcium remains elevated. I have sent several tests that TEMITOPE Villalobos needs to followup on. These are thyroid tests, parathyroid tests, and something called a serum protein electrophoresis. These are all things that are looking at why your calcium is high. Also you will need to have an echocardiogram to check your heart further, and you will probably need to have a heart monitor that watches your heart for days to weeks. Care Plan Goals: OK to go home and take care of yourself. you need to call for help if you begin to feel bad. Make sure to take your green POLST form home with you!! I have a copy here at the hospital on file! TEMITOPE Villalobos will be able to see this as well Print Language: Montserratian Patient Instructions: Syncope, Syncope Causes, Syncope Dx, Syncope Heart Help Follow-up Care: Tiffany Villalobos PA-C [Primary Care Provider] -"
--- NOTE | 2024-12-07 13:35 | PHARMACY PROGRESS NOTE ---
Best Possible Medication History Admit Date and Time: 12/06/24 1555 Home Medications Medication Instructions Recorded Confirmed Type indapamide 2.5 mg tablet 2.5 mg PO DAILY 01/31/17 12/07/24 History potassium chloride 10 mEq 10 meq PO DAILY 01/31/17 12/07/24 History capsule,extended release Processed by: Pharmacy Medications reviewed in ED?: No Medication History completed: Yes Patient Interview: Completed Secondary Source(s): Insurance records [facility] Statement: Per Pt interview with Chidi review on-hand. As the person ultimately responsible for medication therapy, providers are able to order a medication from an existing home medication list in [facility] via the "Reconcile Routine" prior to Confirmation of that medication by decision support manager. Such practice is discouraged except when the physician, in their clinical judgment, deems that a medical need exists for a medication without regard to previous use.
[2024-12-07 13:59] LABS: THYROID STIMULATING HORMONE 1.84 uIU/mL (0.34-5.60)
[2024-12-09 13:08] LABS: A/G RATIO 0.9 (0.7-1.7); ALPHA-1-GLOBULIN 0.2 g/dL (0.0-0.4); ALPHA-2-GLOBULIN 0.9 g/dL (0.4-1.0); BETA GLOBULIN 0.9 g/dL (0.7-1.3); GAMMA GLOBULIN 1.2 g/dL (0.4-1.8); GLOBULIN, TOTAL 3.2 g/dL (2.2-3.9); PROTEIN TOTAL 6.2 g/dL (6.0-8.5)
[2024-12-15 02:06] LABS: 1,25-DIHYDROXY VITAMIN D-2 <10 pg/mL (.); 1,25-DIHYDROXY VITAMIN D-3 21 pg/mL (.); TOTAL 1,25-DIHYDROXYVITAMIN D 24 pg/mL (.)
== END 2024-12-07 14:32 | disposition home or self-care (01) ==
LOC: ED 12:55 → MS2 12:55
PROVIDERS: ADMIT Specialist; ATTEND Specialist
DX: R55 Syncope and collapse; Y92.512 Supermarket, store or market as the place of occurrence of the external cause; S01.01XA Laceration without foreign body of scalp, initial encounter; Z66 Do not resuscitate; E78.5 Hyperlipidemia, unspecified; E04.2 Nontoxic multinodular goiter; Z87.891 Personal history of nicotine dependence; W18.30XA Fall on same level, unspecified, initial encounter; I10 Essential (primary) hypertension; E83.52 Hypercalcemia